=== PATIENT | male | born 1980 | race Caucasian/White ===

== ENCOUNTER 2017-05-15 08:55 | Emergency (ER) | payer OTHER ==
[2017-05-15 08:58] VITALS: RESP 18
--- NOTE | 2017-05-15 09:31 | EDPHY ---
H & P Stated Complaint: Abd pain, slight nausea, +diarrhea;sxs ~ 1 wk Time Seen by Provider: 05/15/17 09:03 HPI/ROS: CHIEF COMPLAINT: Abdominal pain, prior history of diverticular perforation HISTORY OF PRESENT ILLNESS: 37-year-old male visiting from [place], in [place] for 2 more weeks, complaining of 1 week of nausea, diarrhea, periumbilical and left lower quadrant pain. He has prior history of diverticular abscess age 31. No melena or hematochezia. No blood or purulence in his diarrhea. No fever or chills. No flu-like symptoms. No radiation of symptoms. No testicular or genital pain. No urinary abnormality. PRIMARY CARE PROVIDER:in [place] REVIEW OF SYSTEMS: A ten point review of systems was performed and is negative with the exception of the items mentioned in the HPI PAST MEDICAL & SURGICAL HISTORY: Peptic ulcer disease. Diverticular perforation SOCIAL HISTORY: nonsmoker. [employer] student. PHYSICAL EXAM (Prior to examination, patient consented to physical exam, hands were washed and my usual and customary physical exam procedures followed) 1) GENERAL: Well-developed, well-nourished, alert and oriented. Appears to be in no acute distress. 2) HEAD: Normocephalic, atraumatic 3) HEENT: Pupils equal, round, reactive to light bilaterally. Sclera anicteric. Nasopharynx, oropharynx, clear, no lesions. Moist mucous membranes 4) NECK: Full range of motion, no meningeal signs. 5) LUNGS: Clear auscultation bilaterally, no wheezes, no rhonchi, no retractions. 6) HEART: Regular rate and rhythm, no murmur, no heave, no gallop. 7) ABDOMEN: No guarding, tender to palpation periumbilical region and left lower quadrant. Negative Jones's. Negative McBurney's point pain. Negative peritoneal sign., 8) MUSCULOSKELETAL: Moving all extremities, no focal areas of tenderness, no obvious trauma. No peripheral edema or discoloration. 9) BACK: No CVA tenderness, no midline vertebral tenderness, no fluctuance, no step-off, no obvious trauma, no visual or palpable abnormality. 10) SKIN: No rash, no petechiae. 11) Psychiatric: Patient is oriented X 3, there is no agitation. DIFFERENTIAL DIAGNOSIS: My differential diagnosis includes, but is not limited to, acute appendicitis, acute cholecystitis, bowel obstruction, acute pancreatitis, testicular torsion, gastritis , diverticulitis, diverticular abscess, diverticular perforation. The patient understands that this diagnosis is provisional and can never be 100% accurate. This is a partial list of diagnoses considered. These considerations are based on history, physical exam, past history and reassessment. - Personal History Current Tetanus Diphtheria and Acellular Pertussis (TDAP): Yes - Medical/Surgical History Other PMH: diverticulosis. ulcer - Social History Smoking Status: Never smoked Constitutional: Initial Vital Signs Temperature (C) 36.6 C 05/15/17 08:55 Heart Rate 94 05/15/17 08:55 Respiratory Rate 18 05/15/17 08:55 Blood Pressure 158/108 H 05/15/17 08:55 O2 Sat (%) 96 05/15/17 08:55 O2 Delivery Mode Room Air Allergies/Adverse Reactions: No Known Allergies Allergy (Unverified 05/15/17 08:56) Home Medications: Medication Instructions Recorded Ciprofloxacin [Cipro] 500 mg PO BID #14 tab 05/15/17 hydrOXYzine HCL 50 mg PO Q6 PRN #7 tab 05/15/17 metroNIDAZOLE [Flagyl 500 mg (*)] 500 mg PO TID #21 tab 05/15/17 Medical Decision Making - Diagnostics Imaging Results: Imaging Impressions Abdomen CT 05/15/17 09:28 Impression: 1. Extensive colonic diverticulosis with small focal area of edema in the paracolic fat in the distal descending colon probably minimal uncomplicated diverticulitis. 2. See above report for additional findings. Results called and discussed with Estrella Nails on 05/15/2017 at 11:22 Images reviewed myself ED Course/Re-evaluation: 9:30 a.m.: This patient has history of diverticular perforation, currently complaining of periumbilical left lower quadrant pain on examination. Expressed the patient my concerns over possible diverticulitis, could not rule out diverticulitis, perforation, abscess. Recommended laboratory studies including CT imaging. Doubt testicular pathology as he has no complaints of testicular pain and has a normal testicular examination. 11:34 a.m.: Patient was re-evaluated with serial examinations. Discussed his imaging showing mild diverticulitis with no evidence of abscess or perforation. I do not think the patient is a states hospitalization. Plan will be starting the patient on antibiotics in GI follow-up information. He also notes that he has been under quite a bit of stress recently related to his [employer] program an upcoming presentation. He states that he has received hydroxyzine in the past for anxiety which has worked well and allowed him to sleep. He will receive small prescription for this as well. In the meantime usual and customary discharge precautions and instructions provided. - Data Points Laboratory Results: Laboratory Results 05/15/17 09:28 05/15/17 09:28 05/15/17 05/15/17 05/15/17 09:28 09:28 09:25 WBC 7.00 10^3/uL 10^3/uL (3.80-9.50) RBC 5.00 10^6/uL 10^6/uL (4.40-6.38) Hgb 15.6 g/dL g/dL (13.7-17.5) POC Hgb 16.3 gm/dL gm/dL (13.7-17.5) Hct 44.6 % % (40.0-51.0) POC Hct 48 % % (40-51) MCV 89.2 fL fL (81.5-99.8) MCH 31.2 pg pg (27.9-34.1) MCHC 35.0 g/dL g/dL (32.4-36.7) RDW 11.3 % L % (11.5-15.2) Plt Count 201 10^3/uL 10^3/uL (150-400) MPV 10.0 fL fL (8.7-11.7) Neut % (Auto) 79.8 % H % (39.3-74.2) Lymph % (Auto) 10.6 % L % (15.0-45.0) [place] % (Auto) 9.0 % % (4.5-13.0) Eos % (Auto) 0.0 % L % (0.6-7.6) Baso % (Auto) 0.3 % % (0.3-1.7) Nucleat RBC Rel Count 0.0 % % (0.0-0.2) Absolute Neuts (auto) 5.59 10^3/uL 10^3/uL (1.70-6.50) Absolute Lymphs (auto) 0.74 10^3/uL L 10^3/uL (1.00-3.00) Absolute Monos (auto) 0.63 10^3/uL 10^3/uL (0.30-0.80) Absolute Eos (auto) 0.00 10^3/uL L 10^3/uL (0.03-0.40) Absolute Basos (auto) 0.02 10^3/uL 10^3/uL (0.02-0.10) Absolute Nucleated RBC 0.00 10^3/uL 10^3/uL (0-0.01) Immature Gran % 0.3 % % (0.0-1.1) Immature Gran # 0.02 10^3/uL 10^3/uL (0.00-0.10) POC Sodium 134 mEq/L mEq/L (134-144) Sodium 131 mEq/L L mEq/L (134-144) POC Potassium 4.1 mEq/L mEq/L (3.3-5.0) Potassium 4.3 mEq/L mEq/L (3.5-5.2) POC Chloride 96 mEq/L L mEq/L (97-110) Chloride 96 mEq/L L mEq/L (97-110) Carbon Dioxide 23 mEq/l mEq/l (22-31) Anion Gap 12 mEq/L mEq/L (8-16) POC BUN 7 mg/dL mg/dL (7-23) BUN 8 mg/dL mg/dL (7-23) Creatinine 1.0 mg/dL mg/dL (0.7-1.3) POC Creatinine 1.0 mg/dL mg/dL (0.7-1.3) Estimated GFR > 60 Glucose 90 mg/dL mg/dL (70-100) POC Glucose 94 mg/dL mg/dL (70-100) Calcium 9.4 mg/dL mg/dL (8.5-10.4) Total Bilirubin 0.5 mg/dL mg/dL (0.1-1.4) Conjugated Bilirubin 0.2 mg/dL mg/dL (0.0-0.5) Unconjugated Bilirubin 0.3 mg/dL mg/dL (0.0-1.1) AST 26 IU/L IU/L (17-59) ALT 36 IU/L IU/L (21-72) Alkaline Phosphatase 71 IU/L IU/L (38-126) Total Protein 7.2 g/dL g/dL (6.3-8.2) Albumin 4.3 g/dL g/dL (3.5-5.0) Lipase 41.0 IU/L IU/L (23-300) Point of Care Test Results: 05/15/17 09:25 POC Sodium 134 POC Potassium 4.1 POC Chloride 96 L POC BUN 7 POC Creatinine 1.0 POC Glucose 94 Departure - Departure Disposition: Home, Routine, Self-Care Clinical Impression: Anxiety Diverticulitis Qualifiers: Diverticulitis site: large intestine Diverticulitis bleeding: without bleeding Diverticulitis complication: without perforation or abscess Qualified Code(s): K57.32 - Diverticulitis of large intestine without perforation or abscess without bleeding Condition: Good Instructions: Diverticulitis (ED), Anxiety (ED) Referrals: Jerry Juarez MD [Medical Doctor] - 2-3 days, call for appt. Prescriptions: Ciprofloxacin [Cipro] 500 mg PO BID #14 tab hydrOXYzine HCL 50 mg PO Q6 PRN #7 tab PRN Reason: Anxiety metroNIDAZOLE [Flagyl 500 mg (*)] 500 mg PO TID #21 tab
[2017-05-15 09:41] LABS: % IMMATURE GRANULYOCYTES 0.3 % (0.0-1.1); ABSOLUTE IMMATURE GRANULOCYTES 0.02 10^3/uL (0.00-0.10); ADD DIFF? NO; ADD MORPH? NO; ADD SCAN? NO; ATYPICAL LYMPHOCYTE FLAG 20 (0-99); FRAGMENT RBC FLAG 0 (0-99); HEMATOCRIT 44.6 % (40.0-51.0); HEMOGLOBIN 15.6 g/dL (13.7-17.5); LEFT SHIFT FLG 0 (0-99); LIPEMIA HEMOLYSIS FLAG 90 (0-99); MEAN CELL HEMOGLOBIN 31.2 pg (27.9-34.1); MEAN CELL VOLUME 89.2 fL (81.5-99.8); PLATELET CLUMPS FLAG 0 (0-99); PLATELET COUNT 201 10^3/uL (150-400); RED CELL DISTRIBUTION WIDTH 11.3 % (11.5-15.2)
[2017-05-15 09:57] LABS: ALANINE AMINOTRANSFERASE 36 IU/L (21-72); ALBUMIN 4.3 g/dL (3.5-5.0); ALKALINE PHOSPHATASE 71 IU/L (38-126); ANION GAP 12 mEq/L (8-16); ASPARTATE AMINOTRANSFERASE 26 IU/L (17-59); BILIRUBIN,TOTAL 0.5 mg/dL (0.1-1.4); BILIRUBIN-CONJUGATED 0.2 mg/dL (0.0-0.5); BILIRUBIN-UNCONJUGATED 0.3 mg/dL (0.0-1.1); CALCIUM 9.4 mg/dL (8.5-10.4); CARBON DIOXIDE 23 mEq/l (22-31); CHLORIDE 96 mEq/L (97-110); GLOMERULAR FILTRATION RATE > 60; GLUCOSE 90 mg/dL (70-100); POTASSIUM 4.3 mEq/L (3.5-5.2); SODIUM 131 mEq/L (134-144); TOTAL PROTEIN 7.2 g/dL (6.3-8.2)
[2017-05-15] MEDS ORDERED: IOPAMIDOL (ISOVUE-300) 100 ML BTL ONE (10:21)
[2017-05-15] MEDS ORDERED: CIPROFLOXACIN 500 MG TAB PO ONE (11:40)
[2017-05-15] MEDS ORDERED: metroNIDAZOLE 500 MG TAB PO ONE (11:40)
[2017-05-15 12:01] VITALS: BP 129/92; PULSE 91; TEMP 98.1; O2SAT 94
== END 2017-05-15 12:00 | disposition home or self-care (01) ==
DX: K57.32 Diverticulitis of large intestine without perforation or abscess without bleeding (principal); F41.9 Anxiety disorder, unspecified
CPT/HCPCS: 82947-QW; Q9967